=== PATIENT | female | born 1965 | race Caucasian/White ===

== ENCOUNTER 2018-10-23 03:38 | Emergency (ER) | payer OTHER ==
[2018-10-23 05:22] LABS: ABSOLUTE BASOPHILS # (AUTO) 0.1 10^3/uL (0.0-0.2); ABSOLUTE EOSINOPHILS # (AUTO) 0.1 10^3/uL (0.0-0.6); ABSOLUTE MONOCYTES (AUTO) 0.3 10^3/uL (0.1-1.4); ABSOLUTE NEUT (AUTO) 2.9 10^3/uL (1.7-8.2); BASOPHILS % (AUTO) 1.1 % (0-2); EOSINOPHILS % (AUTO) 2.7 % (0-6); HEMATOCRIT 43.9 % (36.0-47.0); HEMOGLOBIN 15.1 g/dL (12.0-15.5); LYMPHOCYTES % (AUTO) 37.1 % (13-45); MEAN CORPUSCULAR HEMOGLOBIN 29.8 pg (27.0-33.4); MEAN CORPUSCULAR HGB CONC 34.5 g/dL (32.0-36.0); MEAN CORPUSCULAR VOLUME 87 fl (80-97); MONOCYTES % (AUTO) 5.4 % (3-13); PLATELET COUNT 197 10^3/uL (150-450); RED BLOOD COUNT 5.07 10^6/uL (3.72-5.28); RED CELL DISTRIBUTION WIDTH 13.1 % (11.5-14.0); SEGMENTED NEUTROPHILS % (AUTO) 53.7 % (42-78); TOTAL CELLS COUNTED % (AUTO) 100 %; WHITE BLOOD COUNT 5.4 10^3/uL (4.0-10.5)
[2018-10-23 05:36] LABS: APPEARANCE,URINE SLIGHTLY-CLOUDY; BILIRUBIN,URINE NEGATIVE (NEGATIVE); COLOR,URINE YELLOW; GLUCOSE, URINE NEGATIVE (NEGATIVE); KETONES,URINE NEGATIVE (NEGATIVE); LEUKOCYTE ESTERASE,URINE TRACE (NEGATIVE); NITRITE,URINE NEGATIVE (NEGATIVE); PROTEIN,URINE NEGATIVE (NEGATIVE); URINE SPECIFIC GRAVITY 1.012; UROBILINOGEN,URINE NEGATIVE mg/dL (<2.0)
[2018-10-23 05:47] LABS: ALANINE AMINOTRANSFERASE 39 U/L (9-52); ALBUMIN 4.3 g/dL (3.5-5.0); ALKALINE PHOSPHATASE 57 U/L (38-126); ANION GAP 9 (5-19); ASPARTATE AMINO TRANSFERASE 24 U/L (14-36); BILIRUBIN,DIRECT 0.2 mg/dL (0.0-0.4); BILIRUBIN,TOTAL 0.6 mg/dL (0.2-1.3); BLOOD UREA NITROGEN 15 mg/dL (7-20); CALCIUM 10.5 mg/dL (8.4-10.2); CARBON DIOXIDE 29 mmol/L (22-30); CHLORIDE 105 mmol/L (98-107); GLUCOSE 100 mg/dL (75-110); LIPASE 170.3 U/L (23-300); POTASSIUM 4.1 mmol/L (3.6-5.0); SODIUM 142.7 mmol/L (137-145); TOTAL PROTEIN 7.6 g/dL (6.3-8.2)
[2018-10-23] MEDS ORDERED: KETOROLAC TROMETHAMINE INJ/PF 30 MG/1 ML SDV IV ONE (07:48)
[2018-10-23] MEDS ORDERED: NORMAL SALINE 1000 ML 1,000 ML IV ONE (07:48)
[2018-10-23] MEDS ORDERED: ONDANSETRON HCL INJ/PF 4 MG/2 ML SDV IV ONE ×2 (07:48→10:09)
--- NOTE | 2018-10-23 08:43 | RADIOLOGY REPORT (SQ) ---
EXAM DESCRIPTION: U/S ABDOMEN LIMITED W/O DOP COMPLETED DATE/TIME: 10/23/2018 8:22 am REASON FOR STUDY: Right upper quadrant abdominal pain, known gallsto COMPARISON: None. TECHNIQUE: Dynamic and static grayscale images acquired of the abdomen and recorded on PACS. Additio nal selected color Doppler and spectral images recorded. LIMITATIONS: None. FINDINGS: PANCREAS: No masses. Visualized pancreatic duct normal caliber. LIVER: No masses. Echotexture normal. LIVER VASCULATURE: Normal directional flow of the main portal vein and hepatic veins. GALLBLADDER: Small gallstones. Normal wall thickness. No pericholecystic fluid. ULTRASOUND-DETECTED BRYANT'S SIGN: Negative. INTRAHEPATIC DUCTS AND COMMON DUCT: CBD and intrahepatic ducts normal caliber. No filling defects. INFERIOR VENA CAVA: Normal flow. AORTA: No aneurysm. RIGHT KIDNEY: Normal size. Normal echogenicity. No solid or suspicious masses. No hydronephrosis. No calcifications. PERITONEAL AND RIGHT PLEURAL SPACE: No ascites or effusions. OTHER: No other significant findings. IMPRESSION: Small gallstones in the gallbladder without gallbladder wall thickening, pericholecystic fluid, biliary ductal dilation, or sonographic Bryant's sign. No evidence of acute cholecystitis. TECHNICAL DOCUMENTATION: JOB ID: [id number] [employer]- All Rights Reserved Reading location - IP/workstation name: [email or web address]
[2018-10-23] MEDS ORDERED: FAMOTIDINE INJ/PF 20 MG/2 ML SDV IV ONE (09:04)
[2018-10-23] MEDS ORDERED: MAG HYDROX/AL HYDROX/SIMETH SUSP 30 ML UDCUP PO ONE (09:05)
[2018-10-23] MEDS ORDERED: LIDOCAINE 2% VISCOUS SOLN 20 ML UDCUP PO ONE (09:05)
[2018-10-23] MEDS ORDERED: MORPHINE SULFATE 10 MG/ML INJ IV ONE (10:09)
--- NOTE | 2018-10-23 13:07 | RADIOLOGY REPORT (SQ) ---
EXAM DESCRIPTION: CT ABD/PELVIS WITH IV ORAL COMPLETED DATE/TIME: 10/23/2018 12:44 pm REASON FOR STUDY: Epigastric abdominal pain COMPARISON: None. TECHNIQUE: CT scan of the abdomen and pelvis performed using helical scanning technique with dynamic intravenous contrast injection. Oral contrast. Images reviewed with lung, soft tissue, and bone win dows. Reconstructed coronal and sagittal MPR images reviewed. Delayed images for evaluation of the ur inary system also acquired. All images stored on PACS. All CT scanners at this facility use dose modulation, iterative reconstruction, and/or weight based d osing when appropriate to reduce radiation dose to as low as reasonably achievable (ALARA). [facility]: Dose Right [facility]: CareDose [facility]: Dose Right [facility]: Teradose 4D [facility]: Tabacus Initative CONTRAST TYPE AND DOSE: contrast/concentration: Isovue 350.00 mg/ml; Total Contrast Delivered: 91.0 ml; Total Saline Delivered: 28.2 ml RENAL FUNCTION: BUN 15 creatinine 0.6 RADIATION DOSE: CT Rad equipment meets quality standard of care and radiation dose reduction techniq ues were employed. CTDIvol: 10.9 - 13.8 mGy. DLP: 1397 mGy-cm.. LIMITATIONS: None. FINDINGS: LOWER CHEST: No significant findings. No nodules or infiltrates. LIVER: There are some hepatic cysts. No masses. Normal attenuation. SPLEEN: Normal size. No focal lesions. PANCREAS: No masses. No significant calcifications. No adjacent inflammation or peripancreatic fluid collections. Pancreatic duct not dilated. GALLBLADDER: Cholelithiasis. Questionable thickening of the gallbladder wall. ADRENAL GLANDS: No significant masses or asymmetry. RIGHT KIDNEY AND URETER: No solid masses. No significant calcifications. No hydronephrosis or hyd roureter. LEFT KIDNEY AND URETER: No solid masses. No significant calcifications. No hydronephrosis or hydr oureter. AORTA AND VESSELS: No aneurysm. No dissection. Renal arteries, SMA, celiac without stenosis. RETROPERITONEUM: No retroperitoneal adenopathy, hemorrhage or masses. BOWEL AND PERITONEAL CAVITY: No bowel obstruction. Contrast is present in the right colon. No obvio us bowel mass. Moderate stool is present in the colon. APPENDIX: Normal. PELVIS: There is air in the vagina. Cannot exclude rectovaginal fistula. ABDOMINAL WALL: No masses. No hernias. BONES: No significant or acute findings. OTHER: No other significant finding. IMPRESSION: 1. Cholelithiasis. Cannot exclude cholecystitis. 2. Air in the vagina. Cannot exclude rectovaginal fistula. COMMENT: Pertinent findings on the imaging study reported as a CRITICAL RESULT to SONAM ROSALES MD at13:01 on 10/23/2018. Category of Critical Result: Unexpected finding. TECHNICAL DOCUMENTATION: JOB ID: [id number] Quality ID # [id number]: Final reports with documentation of one or more dose reduction techniques (e.g., Au tomated exposure control, adjustment of the mA and/or kV according to patient size, use of iterative reconstruction technique) 2010 [employer]- All Rights Reserved Reading location - IP/workstation name: [email or web address]
[2018-10-23 14:10] VITALS: BP 109/72
--- NOTE | 2018-10-23 14:22 | ER Document Report ---
Entered by CAMILO ZARAGOZA SCRIBE 10/23/18 0748 Acting as scribe for:SONAM ROSALES MD ED General - General Chief Complaint: Abdominal Pain Stated Complaint: ABDOMINAL PAIN Time Seen by Provider: 10/23/18 07:42 Primary Care Provider: [facility] [Provider Group] - Follow up in 1 week (Call [facility] today or Friday morning to schedule an appointment.) Notes: Patient is a 53-year-old female presenting to the emergency department complaining of abdominal pain. Patient states that she went to bed at 21:00 last night and woke up at around midnight with this pain. Patient states that she has been having this pain intermittently since February 2018, and that "curling up" usually relives the pain but it did not this time. Patient states that she was seen by gastroenterology while living in [place] who noted that she did have gallstones. Patient states that her last meal was corn and fried veggies last night for dinner. - Related Data Allergies/Adverse Reactions: No Known Allergies Allergy (Verified 10/23/18 06:59) Past Medical History - General Information source: Patient - Social History Smoking Status: Never Smoker Chew tobacco use (# tins/day): No Drug Abuse: None Family History: Reviewed & Not Pertinent Patient has suicidal ideation: No Patient has homicidal ideation: No Past Surgical History: Reports: Hx Breast Surgery - augmentation, Hx Hys terectomy Review of Systems - Review of Systems Constitutional: No symptoms reported EENT: No symptoms reported Cardiovascular: No symptoms reported Respiratory: No symptoms reported Gastrointestinal: See HPI, Abdominal pain Genitourinary: No symptoms reported Female Genitourinary: No symptoms reported Musculoskeletal: No symptoms reported Skin: No symptoms reported Hematologic/Lymphatic: No symptoms reported Neurological/Psychological: No symptoms reported -: Yes All other systems reviewed and negative Physical Exam - Vital signs Vitals: Temp Pulse Resp BP Pulse Ox 97.5 F 60 16 129/82 H 100 10/23/18 03:41 10/23/18 03:41 10/23/18 03:41 10/23/18 03:41 10/23/18 03:41 - Notes Notes: Physical Exam: General: Alert, appears well. HEENT: Normocephalic. Atraumatic. PERRL. Extraocular movements intact. Oropharynx clear. Neck: Supple. Non-tender. Respiratory: No respiratory distress. Clear and equal breath sounds bilaterally. Cardiovascular: Regular rate and rhythm. Abdominal: Generalized upper abdominal tenderness. No distension. Normal Bowel Sounds. Back: Non-tender. No deformity or step off. Extremities: Moves all four extremities. Upper extremities: Normal inspection. Normal ROM. Lower extremities: Normal inspection. No edema. Normal ROM. Neurological: Normal cognition. AAOx4. Normal speech. Psychological: Normal affect. Normal Mood. Skin: Warm. Dry. Normal color. Course - Re-evaluation Re-evalutation: 10/23/18 08:57 Gallbladder ultrasound shows small gallstones without signs of acute cholecystitis. Liver function tests, lipase and white blood cell counts are normal. 10/23/18 10:10 The patient really reported that her abdominal discomfort was really not much improved with the Toradol. On repeat exam she seemed to be a little less tender over the gallbladder region, but was just as tender in the epigastric region. She was given an IV dose of Pepcid and a GI cocktail of Maalox and viscous lidocaine. After 30 to 45 minutes, repeat exam shows that the GI cocktail did not help at all, and she remains quite tender in the left epigastric region. She describes this as a sharp stabbing pain. She is less tender over the gallbladder region. CT scan of the abdomen pelvis with oral and IV contrast will be ordered to try to sort out what may be causing her discomfort today. 10/23/18 13:40 I did discuss the CT findings with the patient. She states she has not been sexually active anytime recently and has no explanation for the air in her vagina. There is been no vaginal discharge or anything to suggest a rectovaginal fistula. The patient recently moved here, has , [place] She will call [facility] to schedule an appointment and see if she needs to go to her primary care provider for referral or if she can make the appointment herself. - Vital Signs Vital signs: Temp Pulse Resp BP Pulse Ox 98 F 57 L 18 109/73 98 10/23/18 10:58 10/23/18 10:58 10/23/18 10:58 10/23/18 10:58 10/23/18 10:58 - Laboratory Result Diagrams: 10/23/18 05:00 10/23/18 05:00 Laboratory results interpreted by me: 10/23/18 10/23/18 05:00 05:00 Calcium 10.5 H Ur Leukocyte Esterase TRACE H - Diagnostic Test Radiology reviewed: Image reviewed, Reports reviewed - Gallbladder ultrasound shows small gallstones within the gallbladder. No pericholecystic fluid, no gallbladder wall thickening, no ductal dilatation. CT scan of the abdomen pelvis with oral and IV contrast shows gallstones with possible gallbladder wall thickening. There is air noted in the vagina. There are no other abnormalities noted. Discharge - Discharge Clinical Impression: Gallbladder colic, Epigastric abdominal pain Cholelithiasis Qualifiers: Cholelithiasis location: gallbladder Cholecystitis presence: without cholecystitis Biliary obstruction: without biliary obstruction Qualified Code(s): K80.20 - Calculus of gallbladder without cholecystitis without obstruction Condition: Stable Disposition: HOME, SELF-CARE Additional Instructions: Gallbladder Disease Your evaluation shows evidence of gallbladder disease. The gallbladder is a pouch under the liver which stores bile. Stones, infection, or irritation of the gallbladder cause attacks of pain. Certain foods -- fats in particular -- may provoke attacks. The usual treatment for gallbladder disease is surgical removal of the gallbladder -- called a cholecystectomy. You will be referred to a physician qu alified to advise you on the best treatment for your problem. Hospitalization is not necessary. Take clear liquids only until you are painfree. After that, you should stay on a low-fat diet, with frequent SMALL meals. Call the doctor or return at once if you develop severe pain, repeated vomiting, fever, or jaundice (a yellow color in the skin and whites of the eyes). Low-Fat Diet The physician has recommended a low-fat diet. This diet is often used for gallbladder or pancreas problems. Your meals should be high-carbohydrate (potato, apples, noodles, breads, vegetables). Eat fish or skinless chicken (boiled or baked rather than fried) for protein. Beans and peas are good sources of fat-free protein. Soups are usually very low-fat. Don't eat anything fried. Avoid red meats. Avoid most dairy products. Skim milk and non-fat yogurt are OK. Most popular cheeses are very high-fat. Don't add butter or sauces -- use lemon or pepper instead. If you like salads, use one of the new "non-fat" dressings. "Fast Food" is "fat food." There is virtually nothing from a typical fast- food restaurant that you can eat. Fish patties and chicken nuggets are almost always deep-fat fried. "Special Sauces" are mostly fat. Abdominal Pain: There are many causes of abdominal pain. Pain can mean a serious problem requiring surgery (such as appendicitis). It can also be an innocent problem that goes away on its own (such as a viral infection). Often, time must pass to determine the cause of pain. The physician does not feel that hospitalization is necessary, at present. Things may change within the next 24 hours. Call the doctor or come back for re- examination if any problems occur, such as: (1) Pain that becomes more severe, steady, or becomes concentrated in one specific area. Also, pain that is more severe with movement or coughing. (2) Vomiting that persists or becomes more frequent. (3) Blood in the vomitus, urine, or bowel movements. Blood in the stool may have a tarry or black appearance. (4) Shaking chills or fever greater than 100 degrees F. (5) The abdomen becomes more distended or swollen. (6) Bowel movements cease. (7) Failure to improve as expected. No clear explanation was found for your epigastric abdominal pain today. It may be due to muscle strain. 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 Eat a low-fat diet of small quantities per serving. Take the pain medications if needed. Call [facility] to schedule an appointment. Follow-up with your primary care provider as planned. RETURN TO THE EMERGENCY ROOM IF ANY NEW OR WORSENING SYMPTOMS. Prescriptions: Hydrocodone/Acetaminophen [[place] 5-325 mg Tablet] 1 tab PO Q4 PRN #15 tablet PRN Reason: Referrals: [facility] [Provider Group] - Follow up in 1 week (Call [facility] today or Friday morning to schedule an appointment.) Scribe Attestation: 10/23/18 08:58 I personally performed the services described in the documentation, reviewed and edited the documentation which was dictated to the scribe in my presence, and it accurately records my words and actions. I personally performed the services described in the documentation, reviewed and edited the documentation which was dictated to the scribe in my presence, and it accurately records my words and actions.
== END 2018-10-23 14:06 | disposition home or self-care (01) ==
LOC: ER 03:38
DX: K80.20 Calculus of gallbladder without cholecystitis without obstruction (principal); R10.9 Unspecified abdominal pain; R10.13 Epigastric pain
CPT/HCPCS: 96376; 99284; 96361; 96374; 96375; 36415; 83690; 85025; 80053; 81001; 76705; 74177; J3490; J1885; J2270; J2405; J7030; S0028

== ENCOUNTER 2018-10-30 00:06 | Observation (INO) | payer OTHER ==
[2018-10-30] MEDS ORDERED: KETOROLAC TROMETHAMINE 60 MG/2 ML SDV IM ONE (00:16)
[2018-10-30] MEDS ORDERED: OXYCODONE-ACETAMINOPHEN 5-325 MG TABLET PO ONE (00:17)
[2018-10-30] MEDS ORDERED: ONDANSETRON 4 MG TAB.RAPDIS PO ONE (00:17)
--- NOTE | 2018-10-30 00:21 | ER Document Report ---
Addendum entered and electronically signed by DENEEN BERTRAND PA 10/30/18 01:28: Course - Re-evaluation Re-evalutation: 10/30/18 01:26 Patient reevaluated, still diaphoretic and in severe pain. Taken to room - Vital Signs Vital signs: Temp Pulse Resp BP Pulse Ox 97.7 F 86 18 122/99 H 100 10/30/18 00:12 10/30/18 00:12 10/30/18 00:12 10/30/18 00:12 10/30/18 00:12 - Laboratory Result Diagrams: 10/30/18 00:43 10/30/18 00:43 Laboratory results interpreted by me: 10/30/18 10/30/18 00:43 00:43 RBC 5.32 H Hgb 15.8 H Calcium 10.3 H Original Note: ED Medical Screen (RME) - General Chief Complaint: Upper Abdominal Pain Stated Complaint: ABDOMINAL PAIN Time Seen by Provider: 10/30/18 00:16 Notes: 53-year-old female with a history of cholelithiasis, seen here 1 week ago and recommended to have surgery, declined because of insurance coverage reasons with [employer], comes to the ED for severe onset of right upper quadrant and epigastric pain with nausea. Patient states she has had intermittent pain all week but not severe until now. Denies fever. Past medical history of hysterectomy. TRAVEL OUTSIDE OF THE [place] IN LAST 30 DAYS: No - Related Data Allergies/Adverse Reactions: No Known Allergies Allergy (Verified 10/30/18 00:08) Past Medical History Renal/ Medical History: Denies: Hx Peritoneal Dialysis Past Surgical History: Reports: Hx Breast Surgery - augmentation, Hx Hysterectomy Physical Exam - Vital signs Vitals: Temp Pulse Resp BP Pulse Ox 97.7 F 86 18 122/99 H 100 10/30/18 00:12 10/30/18 00:12 10/30/18 00:12 10/30/18 00:12 10/30/18 00:12 - General In distress: Severe - Patient doubled over, slightly diaphoretic, appears to be in a lot of pain - Abdominal Tenderness: Tender - Guarding in the right upper quadrant and epigastric areas. Lower abdomen seems benign. Exam limited by sitting position. Course - Re-evaluation Re-evalutation: Patient diaphoretic and clearly in a lot of pain. As a result she is triage level 2. Giving medication, ordering work-up. Vital signs are unremarkable fortunately. I have greeted and performed a rapid initial assessment of this patient. A comprehensive ED assessment and evaluation of the patient, analysis of test results and completion of the medical decision making process will be conducted by additional ED providers. - Vital Signs Vital signs: Temp Pulse Resp BP Pulse Ox 97.7 F 86 18 122/99 H 100 10/30/18 00:12 10/30/18 00:12 10/30/18 00:12 10/30/18 00:12 10/30/18 00:12
[2018-10-30 00:55] LABS: ABSOLUTE BASOPHILS # (AUTO) 0.1 10^3/uL (0.0-0.2); ABSOLUTE EOSINOPHILS # (AUTO) 0.1 10^3/uL (0.0-0.6); ABSOLUTE LYMPHOCYTES (AUTO) 2.3 10^3/uL (0.5-4.7); ABSOLUTE MONOCYTES (AUTO) 0.3 10^3/uL (0.1-1.4); ABSOLUTE NEUT (AUTO) 4.4 10^3/uL (1.7-8.2); BASOPHILS % (AUTO) 1.3 % (0-2); EOSINOPHILS % (AUTO) 1.6 % (0-6); HEMOGLOBIN 15.8 g/dL (12.0-15.5); LYMPHOCYTES % (AUTO) 31.6 % (13-45); MEAN CORPUSCULAR HEMOGLOBIN 29.6 pg (27.0-33.4); MEAN CORPUSCULAR HGB CONC 34.3 g/dL (32.0-36.0); MEAN CORPUSCULAR VOLUME 86 fl (80-97); MONOCYTES % (AUTO) 4.8 % (3-13); PLATELET COUNT 201 10^3/uL (150-450); RED BLOOD COUNT 5.32 10^6/uL (3.72-5.28); RED CELL DISTRIBUTION WIDTH 12.8 % (11.5-14.0); SEGMENTED NEUTROPHILS % (AUTO) 60.7 % (42-78); TOTAL CELLS COUNTED % (AUTO) 100 %; WHITE BLOOD COUNT 7.2 10^3/uL (4.0-10.5)
[2018-10-30] MEDS ORDERED: NORMAL SALINE 1000 ML 1,000 ML IV ONE (01:16)
[2018-10-30] MEDS ORDERED: HYDROMORPHONE HCL INJ/PF 2 MG/ML AMPULE IV ONE (01:16)
[2018-10-30 01:20] LABS: ALANINE AMINOTRANSFERASE 28 U/L (9-52); ALBUMIN 4.7 g/dL (3.5-5.0); ALKALINE PHOSPHATASE 58 U/L (38-126); ANION GAP 11 (5-19); ASPARTATE AMINO TRANSFERASE 21 U/L (14-36); BILIRUBIN,DIRECT 0.3 mg/dL (0.0-0.4); BILIRUBIN,TOTAL 0.6 mg/dL (0.2-1.3); BLOOD UREA NITROGEN 17 mg/dL (7-20); CALCIUM 10.3 mg/dL (8.4-10.2); CARBON DIOXIDE 28 mmol/L (22-30); CHLORIDE 102 mmol/L (98-107); GLUCOSE 101 mg/dL (75-110); LIPASE 117.3 U/L (23-300); POTASSIUM 3.9 mmol/L (3.6-5.0); SODIUM 141.1 mmol/L (137-145); TOTAL PROTEIN 7.9 g/dL (6.3-8.2)
--- NOTE | 2018-10-30 01:31 | RADIOLOGY REPORT (SQ) ---
EXAM DESCRIPTION: US ABDOMEN LIMITED COMPLETED DATE/TME: 10/30/2018 00:17 CLINICAL HISTORY: 53 years Female, severe RUQ pain Comparison:Oct 23 2018 LIMITATIONS: None. FINDINGS: Cholelithiasis, positive sonographic Bryant's test, 0.2 cm gallbladder wall thickness, no pericholecystic fluid, moderate hepatic steatosis, a 0.3-cm diameter common bile duct, no intrahepatic ductal dilation, hepatopetal patent flow of the portal vein, 10-cm right kidney, pancreas, visualized vasculature/abdominal aorta, and no significant ascites appear otherwise unremarkable. IMPRESSION: 1. Cholelithiasis and positive sonographic Bryant's test. Differential diagnosis includes cholecystitis and biliary colic. 2. Hepatic steatosis.
--- NOTE | 2018-10-30 02:55 | PDOC H&P ---
History of Present Illness Admission Date/PCP: 10/30/18 Patient complains of: Ruq pains History of Present Illness: NINA HAYES is a 53 year old female who had a fatty meal for lunch yesterda yfollowed by severe stabbing pains in the RUQ radiating to the back at 8 pm. Went to ED and had an ULtrasound which showed gallstonews and acute cholecystitis. Associated nausea and feeling of warmth. No chills. Has headaches and weakness. No dysuria yesterday but has not voided yet tonight. Past Surgical History Past Surgical History: Reports: Hysterectomy Social History Smoking Status: Unknown if Ever Smoked Frequency of Alcohol Use: Occasional Family History Family History: Reviewed & Not Pertinent Parental Family History Reviewed: Yes - mother had Diabetes Children Family History Reviewed: No Sibling(s) Family History Reviewed.: No Medication/Allergy Home Medications: Hydrocodone/Acetaminophen [[place] 5-325 mg Tablet] 1 tab PO Q4 PRN #15 tablet 10/23/18 Allergies/Adverse Reactions: No Known Allergies Allergy (Verified 10/30/18 00:08) Review of Systems Constitutional: PRESENT: as per HPI Physical Exam Vital Signs: Temp Pulse Resp BP Pulse Ox 97.7 F 86 18 122/99 H 100 10/30/18 00:12 10/30/18 00:12 10/30/18 00:12 10/30/18 00:12 10/30/18 00:12 Intake & Output 10/28/18 10/29/18 10/30/18 06:59 06:59 06:59 Weight 80.3 kg General appearance: PRESENT: severe distress Head exam: PRESENT: atraumatic Eye exam: PRESENT: conjunctiva pink Mouth exam: PRESENT: moist Neck exam: PRESENT: full ROM Respiratory exam: PRESENT: clear to auscultation bonita Cardiovascular exam: PRESENT: RRR Pulses: PRESENT: normal radial pulses Vascular exam: PRESENT: normal capillary refill GI/Abdominal exam: PRESENT: soft, tenderness - RUQ Rectal exam: PRESENT: deferred Extremities exam: PRESENT: full ROM Musculoskeletal exam: PRESENT: ambulatory Neurological exam: PRESENT: alert, oriented to person, oriented to place, oriented to time, oriented to situation Psychiatric exam: PRESENT: anxious Results Laboratory Results: 10/30/18 00:43 10/30/18 00:43 10/30/18 10/30/18 00:43 00:43 WBC 7.2 RBC 5.32 H Hgb 15.8 H Hct 46.0 MCV 86 MCH 29.6 MCHC 34.3 RDW 12.8 Plt Count 201 Seg Neutrophils % 60.7 Lymphocytes % 31.6 Monocytes % 4.8 Eosinophils % 1.6 Basophils % 1.3 Absolute Neutrophils 4.4 Absolute Lymphocytes 2.3 Absolute Monocytes 0.3 Absolute Eosinophils 0.1 Absolute Basophils 0.1 Sodium 141.1 Potassium 3.9 Chloride 102 Carbon Dioxide 28 Anion Gap 11 BUN 17 Creatinine 0.70 Est GFR ( Amer) > 60 Est GFR (Non-Af Amer) > 60 Glucose 101 Calcium 10.3 H Total Bilirubin 0.6 AST 21 ALT 28 Alkaline Phosphatase 58 Total Protein 7.9 Albumin 4.7 Lipase 117.3 Impressions: Abdomen Ultrasound 10/30/18 00:17 IMPRESSION: 1. Cholelithiasis and positive sonographic Bryant's test. Differential diagnosis includes cholecystitis and biliary colic. 2. Hepatic steatosis. Assessment & Plan - Diagnosis (1) Acute cholecystitis Is this a current diagnosis for this admission?: Yes (2) Cholelithiasis Qualifiers: Cholelithiasis location: gallbladder Cholecystitis presence: without cholecystitis Biliary obstruction: without biliary obstruction Qualified Code(s): K80.20 - Calculus of gallbladder without cholecystitis without obstruction Is this a current diagnosis for this admission?: Yes - Time Time Spent: 30 to 50 Minutes - Inpatient Certification Medical Necessity: Need For IV Fluids, Need for Pain Control, Need for IV A ntibiotics, Need for Surgery - Plan Summary Plan Summary: Start IV antibiotics Hydrate For lap ayanna
--- NOTE | 2018-10-30 02:57 | ER Document Report ---
ED General - General Chief Complaint: Upper Abdominal Pain Stated Complaint: ABDOMINAL PAIN Time Seen by Provider: 10/30/18 00:16 Notes: Patient is a 53-year-old female with a past medical history who presents with 1 week of progressively worsening right upper quadrant abdominal pain that became much worse this evening. Patient states that the pain had been bearable until this evening when abruptly the pain became much more severe now a constant, aching, stabbing pain to her epigastrium and right upper quadrant. States that she has had associated nausea but no vomiting. States that she was seen a week ago, diagnosed with symptomatic cholelithiasis and has been trying to get set up for an outpatient cholecystectomy but the pain became far too severe tonight. No obvious trigger for the worsening the pain, states last time she ate was at roughly 1400. No obvious alleviating factors. Has not had fever or constitutional symptoms. No prior abdominal surgical history. No history of similar intensity of pain in the past. TRAVEL OUTSIDE OF THE [place] IN LAST 30 DAYS: No - Related Data Allergies/Adverse Reactions: No Known Allergies Allergy (Verified 10/30/18 00:08) Past Medical History - General Information source: Patient - Social History Smoking Status: Never Smoker Frequency of alcohol use: None Drug Abuse: None Lives with: Spouse/Significant other Family History: Reviewed & Not Pertinent Renal/ Medical History: Denies: Hx Peritoneal Dialysis Past Surgical History: Reports: Hx Breast Surgery - augmentation, Hx Hysterectomy Review of Systems - Review of Systems Notes: Constitutional: Negative for fever. HENT: Negative for sore throat. Eyes: Negative for visual changes. Cardiovascular: Negative for chest pain. Respiratory: Negative for shortness of breath. Gastrointestinal: Positive for upper abdominal pain, nausea Genitourinary: Negative for dysuria. Musculoskeletal: Negative for back pain. Skin: Negative for rash. Neurological: Negative for headaches, weakness or numbness. 10 point ROS negative except as marked above and in HPI. Physical Exam - Vital signs Vitals: Temp Pulse Resp BP Pulse Ox 97.7 F 86 18 122/99 H 100 10/30/18 00:12 10/30/18 00:12 10/30/18 00:12 10/30/18 00:12 10/30/18 00:12 Interpretation: Normal Notes: PHYSICAL EXAMINATION: GENERAL: Appears uncomfortable, in moderate to severe pain HEAD: Atraumatic, normocephalic. EYES: Pupils equal round and reactive to light, extraocular movements intact, sclera anicteric, conjunctiva are normal. ENT: nares patent, oropharynx clear without exudates. Moist mucous membranes. NECK: Normal range of motion, supple without lymphadenopathy LUNGS: Breath sounds clear to auscultation bilaterally and equal. No wheezes rales or rhonchi. HEART: Regular rate and rhythm without murmurs ABDOMEN: Soft, focal tenderness the epigastrium and right upper quadrant on palpation without additional localized pain, normoactive bowel sounds. No guarding, no rebound. No masses appreciated. EXTREMITIES: Normal range of motion, no pitting or edema. No cyanosis. NEUROLOGICAL: No focal neurological deficits. Moves all extremities spontaneously and on command. PSYCH: Normal mood, normal affect. SKIN: Warm, Dry, normal turgor, no rashes or lesions noted. Course - Re-evaluation Re-evalutation: 10/30/18 02:55 Patient presents with signs and symptoms of probable cholecystitis. The patient's pain is intractable despite receiving IV analgesia in triage. On exam the patient continues to have guarding in the right upper quadrant and on formal right upper quadrant ultrasound she does have a positive sonographic Bryant sign with cholelithiasis. Labs otherwise unremarkable. Case discussed with surgeon on-call Dr. Molina who agrees to accept the patient for surgical management. - Vital Signs Vital signs: Temp Pulse Resp BP Pulse Ox 97.7 F 86 18 122/99 H 100 10/30/18 00:12 10/30/18 00:12 10/30/18 00:12 10/30/18 00:12 10/30/18 00:12 - Laboratory Result Diagrams: 10/30/18 00:43 10/30/18 00:43 Laboratory results interpreted by me: 10/30/18 10/30/18 00:43 00:43 RBC 5.32 H Hgb 15.8 H Calcium 10.3 H - Diagnostic Test Radiology reviewed: Reports reviewed Discharge - Discharge Clinical Impression: Acute cholecystitis Condition: Fair Disposition: ADMITTED INPATIENT Admitting Provider: Surgicalist Unit Admitted: Surgical Floor
[2018-10-30] MEDS ORDERED: PIPERACILLIN/TAZOBACTAM 3.375 GM VIAL IV SCH (03:00)
[2018-10-30 04:04] LABS: APPEARANCE,URINE SLIGHTLY-CLOUDY; BILIRUBIN,URINE NEGATIVE (NEGATIVE); CALCIUM OXALATE CRYSTALS,URINE RARE /HPF; COLOR,URINE YELLOW; GLUCOSE, URINE NEGATIVE (NEGATIVE); KETONES,URINE NEGATIVE (NEGATIVE); LEUKOCYTE ESTERASE,URINE TRACE (NEGATIVE); NITRITE,URINE NEGATIVE (NEGATIVE); PROTEIN,URINE NEGATIVE (NEGATIVE); URINE SPECIFIC GRAVITY 1.024; UROBILINOGEN,URINE NEGATIVE mg/dL (<2.0)
[2018-10-30] MEDS: HYDROMORPHONE HCL INJ/PF 2 MG/ML AMPULE IV PRN ×2 (04:37→07:09)
[2018-10-30] MEDS: ONDANSETRON HCL INJ/PF 4 MG/2 ML SDV IV PRN ×2 (04:37→06:15)
[2018-10-30] MEDS ORDERED: ONDANSETRON HCL INJ/PF 4 MG/2 ML SDV ONE (06:12)
[2018-10-30] MEDS: DEXTROSE 5%-LACTATED RINGERS 1,000 ML IV PRN ×2 (07:15→20:40)
[2018-10-30] MEDS ORDERED: PROMETHAZINE HCL INJ 25 MG/1 ML VIAL IV PRN ×2 (07:59→14:47)
[2018-10-30] MEDS ORDERED: FENTANYL CITRATE INJ/PF 250 MCG/5 ML AMPULE ONE (12:31)
[2018-10-30] MEDS ORDERED: MIDAZOLAM 2 MG/2 ML INJ ONE (12:31)
[2018-10-30] MEDS ORDERED: HYDROMORPHONE HCL INJ/PF 2 MG/ML AMPULE ONE (12:32)
[2018-10-30] MEDS ORDERED: PROPOFOL INJ 200 MG/20 ML VIAL IV ONE (12:32)
[2018-10-30] MEDS ORDERED: BUPIVACAINE HCL 0.5%-EPI 1:200000 INJ/PF 30 ML VIAL ONE (12:42)
[2018-10-30] MEDS ORDERED: CEFAZOLIN INJ 1 GM VIAL ONE (13:30)
--- NOTE | 2018-10-30 14:03 | Operative Report ---
Nonrecallable Operative Report DATE OF SURGERY: 10/30/18 PREOPERATIVE DIAGNOSIS: symptomatic cholelithiasis POSTOPERATIVE DIAGNOSIS: symptomatic cholelithiasis OPERATION: laparoscopic cholecystectomy SURGEON: SUKHDEV RYAN ANESTHESIA: GA TISSUE REMOVED OR ALTERED: gallbladder COMPLICATIONS: none ESTIMATED BLOOD LOSS: 10cc INTRAOPERATIVE FINDINGS: see dictation PROCEDURE: see dictation
[2018-10-30] MEDS ORDERED: NALOXONE HCL INJ/PF 0.4 MG/1 ML SDV ONE (14:08)
[2018-10-30] MEDS ORDERED: OXYCODONE-ACETAMINOPHEN 5-325 MG TABLET PO PRN (14:13)
--- NOTE | 2018-10-30 14:20 | Discharge Summary ---
Discharge Summary (SDC) - Discharge Final Diagnosis: symptomatic cholelithiasis Date of Surgery: 10/30/18 Condition: Good Treatment or Instructions: ok to shower eat light diet tonight, drink lots of fluids ok to shower tomorrow ok to get steristrips wet just dont soap up, pat dry needs a f/u appoint in 7-10 days. Discharge Diet: As Tolerated Discharge Activity: Activity As Tolerated, No Lifting Over 10 Pounds Report the Following to Your Physician Immediately: Shortness of Breath, Nausea, Vomiting, Yellow Skin - needs f/u appoint in 7-10 days., Fever over 101 Degrees
[2018-10-30] MEDS ORDERED: KETOROLAC TROMETHAMINE INJ/PF 30 MG/1 ML SDV ONE (14:26)
[2018-10-30] MEDS ORDERED: ROCURONIUM BROMIDE INJ 50 MG/5 ML VIAL IV ONE (14:44)
[2018-10-30] MEDS ORDERED: SUCCINYLCHOLINE CHLORIDE INJ 200 MG/10 ML VIAL ONE (14:44)
--- NOTE | 2018-10-30 14:45 | OPERATIVE REPORT E ---
Operative Report NAME: NINA HAYES : 1965 AGE: 53Y DATE OF SURGERY: 10/30/2018 ROOM: 209 PREOPERATIVE DIAGNOSIS: CHOLECYSTITIS. POSTOPERATIVE DIAGNOSIS: SYMPTOMATIC CHOLELITHIASIS. OPERATION: LAPAROSCOPIC CHOLECYSTECTOMY. SURGEON: SUKHDEV RYAN M.D. LABORER AIRPORT MAINTENANCE: Kaykay Zelaya PA-C, who was present for the entire operation for help in wound retraction and wound closure. PROCEDURE: The patient was brought to the operating room in awake, alert, and stable condition, placed on the operating table in the supine position and induced under general anesthesia, intubated. Abdomen was prepped and draped in the usual sterile manner for the procedure. After appropriate timeout and site verification, the Veress needle was placed into the umbilicus and the abdomen was insufflated with 6 liters of CO2 gas. An infraumbilical 10 mm incision was made with a 15 blade and a 10 mm port was placed into the umbilical incision. Intraabdominal visualization revealed no evidence of Veress needle or trocar injury. Two lateral 5 mm ports were placed under direct vision and epigastric 5 mm port. The gallbladder was visualized. It was noted to be distended, but not significantly inflamed. It was placed on traction. The hepatoduodenal ligament was dissected and isolated, and the cystic duct and cystic artery. Two Endoclips were placed on the stay side and one on the specimen side of each of those structures. They were divided. The gallbladder was dissected out of the liver bed with Bovie cautery, placed in an Endobag, and removed through the umbilical port site. The right upper quadrant was irrigated with normal saline, suctioned dry. Hemostasis was noted to be intact. The ports were removed. Pneumoperitoneum reduced. The umbilical port site fascial defect was closed with 0 Vicryl and all four skin incisions were closed with intracuticular 4-0 Biosyn. Steri-Strips completed the procedure. Estimated blood loss was less than 10 mL. Sponge and needle counts correct x2. The patient was awakened in the operating room, extubated, and transferred to recovery in stable condition. No complications. DICTATING PHYSICIAN: SUKHDEV YRAN M.D. [id number] Y#: [id number] ID: [id number] JOB#: [id number] ACCT: [id number] cc:SUKHDEV RYAN M.D. >
[2018-10-30] MEDS ORDERED: MEPERIDINE HCL/PF INJ 25 MG/1 ML DISP.SYRIN IV PRN (14:47)
[2018-10-30] MEDS ORDERED: FENTANYL CITRATE INJ/PF 100 MCG/2 ML AMPUL IV PRN ×3 (14:47)
[2018-10-30] MEDS ORDERED: DIPHENHYDRAMINE HCL 50 MG/ML VIAL IV PRN (14:47)
[2018-10-30] MEDS ORDERED: FENTANYL CITRATE INJ/PF 100 MCG/2 ML AMPUL ONE (14:55)
--- NOTE | 2018-10-30 22:32 | EKG REPORT ---
SEVERITY:- NORMAL ECG - SINUS RHYTHM : Confirmed by: Jena Blum 30-Oct-2018 22:31:57
[2018-10-31] MEDS ORDERED: ACETAMINOPHEN 325 MG TABLET ONE (00:11)
[2018-10-31] MEDS ORDERED: ACETAMINOPHEN 325 MG TABLET PO PRN (00:19)
[2018-10-31 05:39] VITALS: BP 102/56
== END 2018-10-31 05:58 | disposition home or self-care (01) ==
LOC: ER 00:06 → EH 03:28 → INTOOBSV 03:28 → 2N 06:40
PROVIDERS: ATTEND Surgery
PROC: 0FT44ZZ Resection of Gallbladder, Percutaneous Endoscopic Approach (ICD-10-PCS; principal; 2018-10-30 13:00)
DX: K80.10 Calculus of gallbladder with chronic cholecystitis without obstruction (principal); R51 Headache; R53.1 Weakness; Z90.710 Acquired absence of both cervix and uterus
CPT/HCPCS: 99285; 96372; 96361; 96374; 36415; 83690; 85025; 80053; 81001; 88304 ×2; 76705; 93005; 93010; 47562; J2250; J3490 ×2; J0690; J1885 ×2; S0119; J3010 ×2; J2310; J1170; J2550; J0330; J2405; J7121; J7030; J2704; 902